=== PATIENT | female | born 1955 ===

== ENCOUNTER 2020-06-14 04:39 | Day surgery (SDC) | payer OTHER ==
[2020-06-13 16:12] VITALS: BMI 23.5
[2020-06-14] MEDS ORDERED: MIDAZOLAM HCL 2 MG/2 ML SINGLE DOSE VIAL ONE (07:48)
[2020-06-14] MEDS ORDERED: ceFAZolin SODIUM 1 GM VIAL IVPB ONE (07:53)
[2020-06-14] MEDS ORDERED: ceFAZolin SODIUM 1 GM VIAL ONE (07:55)
[2020-06-14] MEDS ORDERED: PROPOFOL 20 ML ONE ×2 (07:55→08:05)
[2020-06-14] MEDS ORDERED: LIDOCAINE HCL 1%, 10 MG/ML (20ML VIAL) ID ONE (07:59)
[2020-06-14] MEDS ORDERED: BUPIVACAINE HCL/PF 0.5% (5MG/ML) 10 ML VIAL IJ ONE ×2 (07:59→08:30)
[2020-06-14] MEDS ORDERED: DEXAMETHASONE SOD PHOSPHATE 4 MG/1 ML VIAL IVPUSH ONE (08:30)
[2020-06-14] MEDS ORDERED: BACITRACIN 50,000 UNITS VIAL TP ONE (08:30)
[2020-06-14] MEDS ORDERED: BENZOIN/ALOE VERA/STORAX/TOLU 58 ML BOTTLE TP ONE (08:55)
--- NOTE | 2020-06-14 09:22 | OP ---
Operative Note - Note: Operative Date: 06/14/20 Pre-Operative Diagnosis: Hallux Valgus Right. Semi-rigid ht 2nd toe right. Operation: Long arm ish bunionectomy with 2x 2.4mm full core osteomed screw fixation right foot. Arthroplasty PIPJ 2nd toe right foot. Findings: Hypertrophic bone and soft tissue Implants: 2.4mm screws x 2 Post-Operative Diagnosis: Same as Pre-op Surgeon: Dinorah Maria Whip Sawyer: Olvin Collazo Anesthesia: Local, MAC Specimens Removed: bone and soft tissue Estimated Blood Loss (mls): 5 Operative Report Dictated: Yes
[2020-06-14] MEDS ORDERED: ONDANSETRON 4 MG/2 ML VIAL IVPUSH PRN (09:25)
[2020-06-14] MEDS ORDERED: oxyCODONE HCL 5 MG TABLET PO PRN ×2 (09:25)
[2020-06-14] MEDS ORDERED: LACTATED RINGERS SOLUTION 1,000 ML IV SCH (09:30)
[2020-06-14 11:26] VITALS: BP 134/84; PULSE 79; TEMP 97
--- NOTE | 2020-06-15 08:35 | OP ---
DATE OF OPERATION: 06/14/2020 SURGEON: Dinorah Maria DPM CO-SURGEON: Olvin Collazo DPM BANKING SERVICES ADVISOR: , EVONNE, PGY3 PREOPERATIVE DIAGNOSES: 1. Right foot painful hallux abductovalgus deformity. 2. Right foot pain from 2nd digit hammertoe deformity. POSTOPERATIVE DIAGNOSES: 1. Right foot painful hallux abductovalgus deformity. 2. Right foot pain from 2nd digit hammertoe deformity. PROCEDURE: 1. Abdirizak bunionectomy, right foot.2. Arthroplasty, 2nd digit, right foot. 3. Layered closure. 4. Postoperative injection. PATHOLOGY: Bone and soft tissue. ANESTHESIA: Local with MAC. HEMOSTASIS: Pneumatic right ankle tourniquet at 250 mmHg. ESTIMATED BLOOD LOSS: Minimal. MATERIALS: Osteomed partially threaded screws two 2.4 x 14 mm, 2-0 Vicryl, 3-0 Vicryl, 4-0 nylon, 5-0 Monocryl, Steri-Strips, Betadine-soaked Adaptic, 4 x 4s, Kerlix and BLANK. INJECTABLES: Preop was 20 mL total of 1:1 mixture of lidocaine 1% plain and Marcaine 0.5% plain. Postoperatively was 10 mL of 8:2 mixture of Marcaine 0.5% plain and dexamethasone 4 mg. CONDITION: Stable. COMPLICATIONS: None. DESCRIPTION OF THE PROCEDURE: The patient was brought to the operating room and placed on the operating room table in the supine position. After appropriate timeout procedures, administration of preoperative antibiotic and identification of the procedures, MAC anesthesia was initiated by the anesthesia team. After adequate sedation a local anesthetic block was administered to the right foot utilizing a 1:1 mixture of 1% lidocaine plain and 0.5% Marcaine plain for a total of 20 mL being used. A well-padded pneumatic ankle tourniquet was now applied to the right ankle. The foot was then prepped and draped in the usual aseptic manner. An Esmarch bandage was then utilized to exsanguinate the patients right foot, and the tourniquet was inflated to 250 mmHg. Surgery began in the following manner. Attention was first directed to the right posteromedial aspect of the 1st metatarsal head of the right foot where an approximately 5-cm linear longitudinal incision was made at the medial aspect of the 1st metatarsophalangeal joint. The incision was medial and parallel to the extensor hallucis longus. The incision was then deepened through subcutaneous tissue using sharp and blunt dissection with care being taken to identify and retract all vital neurovascular structures. All bleeders were cauterized as necessary. Next, a linear capsulotomy was then performed at the distal medial aspect of the 1st metatarsophalangeal joint where then periosteal and capsular structures were then carefully dissected free of their osseous attachments and reflected medially and laterally, exposing the head of the 1st metatarsal. It was noted that the head was hypertrophic in its medial and dorsal aspects. Attention was then directed to the dorsomedial prominence where using a sagittal bone saw the prominence was resected and passed from the operative field. Attention was then directed to the medial aspect of the 1st metatarsal head where the knee was flexed and the foot was externally rotated along the medial aspect of the foot to point superiorly for better visualization of the osteotomy site. At this time a [id number] V-type osteotomy was created at the head of the 1st metatarsal, the apex of the osteotomy pointed distally with arms pointed proximally. After completion of the osteotomy, the leg was then straightened out and the capital fragment was transposed laterally into a more corrected position. Next using a 0.062 K-wire it was then placed through the medial aspect in a [id number] fashion of the capital fragment to temporarily stabilize the correction. Next utilizing a 0.045 K-wire a pilot boat operator hole was then made and following standard A-O principles and techniques a 2.4 x 14-mm partially threaded Osteomed screw was then driven across the osteotomy site. Compression was noted across the osteotomy site and the temporary 0.062 K-wire was then removed. Following the same procedure a 2nd 2.4 x 14-mm partially threaded screw was then placed proximal to the 1st screw. All bony prominences were then resected using a sagittal bone saw, and rough edges were removed with a power bur. The surgical site was then irrigated with normal saline and bacitracin solution. The site was closed in layers. The capsule was reapproximated with 2-0 and 3-0 Vicryl, and subcutaneous tissue was reapproximated with 4-0 Vicryl. The skin was reapproximated with 5-0 Monocryl in a running subcuticular fashion. Attention was then directed to the 2nd digit of the right foot where 2 linear converging semielliptical longitudinal incisions were made dorsal to the PIPJ. The incisions were deepened through subcutaneous tissues with care being taken to identify and retract all vital neural and vascular structures. All bleeders were cauterized and ligated as necessary. At this time, a transverse tenotomy and capsulotomy were performed to the proximal interphalangeal joint. The head of the proximal phalanx was then freed of its capsular and ligament attachments. The head was hypertrophied on its dorsal and medial and lateral aspect. Next utilizing an oscillating bone saw the head of the proximal phalanx was resected and passed from the operative site. At this time, all deformities were noticed to be reduced and laid in a more corrected position. The surgical site was then irrigated with a normal saline and bacitracin solution. The site was closed in layers. The tendon was reapproximated with 4-0 Vicryl, and the skin was reapproximated with 4-0 nylon in a running subcuticular suture fashion. A postoperative injection was then administered to the left foot utilizing 10 mL of an 8:2 mixture of Marcaine 0.5% plain and dexamethasone 4 mg. The 1st MPJ surgical site was dressed with Steri-Strips and Mastisol as well as Betadine-soaked Adaptic. The 2nd digit was dressed with Betadine-soaked Adaptic; and all surgical sites were then dressed with sterile 4 x 4 gauze, Mely and BLANK. The pneumatic ankle tourniquet was then deflated, and a prompt hyperemic response was noted to all digits of the right foot. The patient tolerated the procedure and anesthesia well and left the operating room to the recovery room with all vital signs stable and neurovascular status intact and capillary refill time of less than 3 seconds to all digits of the right foot. EVONNE Juarez/[id number]
--- NOTE | 2020-06-15 19:59 | PATH ---
Surgical Pathology Report Patient Name: ALEX PHILLIPS [facility]. Rec. #: [id number] /Age/Gender: 1955 (Age: 65) / F Account: [id number] Location: [facility] SUR[facility]ICAL Taken: 06/14/2020 Received: 06/14/2020 Reported: 06/15/2020 Physicians: Dinorah Maria DPM Specimen(s) Received A: BONE RIGHT TOE B: CAPSULE C: SECOND TOE SKIN AND BONE Clinical History Bunion/hammertoe second digit right foot Final Diagnosis A. BONE, TOE, RIGHT, BUNIONECTOMY: BONE WITH FATTY MARROW AND ADHERENT DENSE FIBROCONNECTIVE TISSUE. B. CAPSULE, EXCISION: DENSE FIBROCONNECTIVE TISSUE WITH DEGENERATIVE CHANGES. C. SKIN AND BONE, TOE, SECOND, HAMMER TOE CORRECTION: BONE WITH FATTY MARROW AND ADHERENT DENSE FIBROCONNECTIVE TISSUE. SKIN WITHOUT SIGNIFICANT PATHOLOGIC FINDINGS. Electronically Signed Gwen Ratliff M.D. Gross Description A. Received in formalin labeled "bone right toe," are 3 garcia, irregular portions of bone ranging from 1.3 x 0.6 x 0.2 cm to 1.6 x 1.2 x 0.3 cm. Biomedical Equipment Technician sections are submitted in one cassette, following decalcification. B. Received in formalin labeled "capsule," is a 1.8 x 0.6 x 0.2 cm garcia, irregular portion of soft tissue, consistent with a capsule. The specimen is bisected and entirely submitted in one cassette. C. Received in formalin labeled "second toe skin and bone," is a 1.2 x 0.6 x 0.6 cm garcia-yellow portion of bone. Also received within the same container is a 2.0 x 0.5 cm garcia-brown, elliptical, unoriented portion of skin. Biomedical Equipment Technician sections, including the entire bone, are submitted in one cassette, following decalcification. 06/14/2020 [facility]/06/14/2020
== END 2020-06-14 11:10 | disposition home or self-care (01) ==
LOC: JASU-SURG 04:39
PROVIDERS: ATTEND Podiatrist Foot Surgery
PROC: 0QSN04Z Reposition Right Metatarsal with Internal Fixation Device, Open Approach (ICD-10-PCS; principal; 2020-06-14 08:00)
PROC: 0QBQ0ZZ Excision of Right Toe Phalanx, Open Approach (ICD-10-PCS; 2020-06-14 08:00)
DX: M20.11 Hallux valgus (acquired), right foot (principal); M20.41 Other hammer toe(s) (acquired), right foot
CPT/HCPCS: 73630-TC-RT-FY; 88304-TC; 88311-TC; 94760